=== PATIENT | male | born 1940 | race Asian ===

== ENCOUNTER 2019-04-21 08:32 | Observation (INO) | payer MEDICARE ==
[2019-04-21 09:16] LABS: #Eosinphils 0.7 thou/uL (0.0-0.7); #Lymphocytes 1.4 thou/uL (1.20-3.40); #Monocytes 0.6 thou/uL (0.11-0.59); #Neutrophils 3.4 thou/uL (1.40-6.50); %Basophils 0.8 % (0.0-1.0); %Eosinophils 10.7 % (0.0-10.0); %Monocytes 9.7 % (0.0-10.0); %Neutrophils 55.8 % (42.0-75.0); Hemoglobin 13.7 g/dL (14.0-18.0); Mean Corpuscular HGB CONC 34.6 g/dL (32.0-36.0); Mean Corpuscular Hemoglobin 35.1 pg (27.0-31.0); Mean Platelet Volume 7.3 fL (7.4-10.4); Platelet Count 163 thou/uL (130-400); RBC Distribution Width 12.2 % (11.5-14.5); Red Blood Cell (RBC) Count 3.91 mill/uL (4.70-6.10); White Blood Cell (WBC) Count 6.1 thou/uL (4.8-10.8)
--- NOTE | 2019-04-21 09:20 | RAD ---
LEFT SHOULDER 3 VIEWS: Date: 04/21/2019 HISTORY: Fell against a wall. Complains of left shoulder pain. FINDINGS: There is an AC separation present. There are arthritic changes of the AC joint. The humeral head is h igh-riding. This would suggest that there is presence of a chronic underlying rotator cuff tear. No f ractures. IMPRESSION: AC separation. POS: TPC
--- NOTE | 2019-04-21 09:22 | RAD ---
Exam: Chest one view HISTORY:Syncope Comparison: None FINDINGS: Cardiac silhouette:Upper normal cardiac silhouette. Lines and tubes: Right-sided Mediport catheter terminates in the inferior vena cava. Aorta: Atherosclerosis of the aortic knob Pulmonary vessels: Normal Costophrenic angles: Clear LUNGS: No masses or consolidation. Lung volumes are diminished, likely due to poor inspiratory effort . Pneumothorax: None Osseous abnormalities: None IMPRESSION: 1. Diminished lung volumes, likely due to poor inspiratory effort. 2. Atherosclerosis. 3. No acute cardiopulmonary process.
--- NOTE | 2019-04-21 09:31 | CT ---
Exam: Head CT without contrast HISTORY: Fall. Patient felt dizzy. Pain. COMPARISON: none FINDINGS: Hemorrhage: No intraparenchymal hemorrhage or extra-axial hematoma. Brain parenchyma: Cortical herrera-white matter differentiation is preserved. No mass effect or midline shift. Basilar cisterns are patent.Age-appropriate brain volume loss. Minimal chronic small vessel ischemic changes white matter. Ventricular system: Ventricles and sulci are patent and symmetric. Calvarium: Intact. Sinuses and mastoid air cells: Adequate aeration. IMPRESSION: No intracranial post traumatic sequelae.
[2019-04-21 09:43] LABS: ALT (SGPT) 21 U/L (8-55); AST (SGOT) 24 U/L (5-34); Albumin 4.1 g/dL (3.4-4.8); Alkaline Phosphatase 46 U/L (40-110); Anion Gap 12 mmol/L (10-20); BUN (Urea Nitrogen) 20 mg/dL (8.4-25.7); Bilirubin, Total 0.5 mg/dL (0.2-1.2); CK (CPK) 255 U/L (30-200); Calc. Creatinine Clearance 0 mL/min (70-130); Carbon Dioxide 26 mmol/L (23-31); Chloride 107 mmol/L (98-107); Estimated GFR-MDRD 71; Globulin 2.7 g/dL (2.4-3.5); Glucose 106 mg/dL (83-110); Lipase 27 U/L (8-78); Potassium 4.3 mmol/L (3.5-5.1); Protein, Total 6.8 g/dL (5.8-8.1); Sodium 141 mmol/L (136-145)
[2019-04-21 10:01] LABS: CKMB 4.2 ng/mL (0-6.6)
[2019-04-21] MEDS ORDERED: Iopamidol-370 76% 500 ML 1 ML ONE (10:05)
[2019-04-21] MEDS ORDERED: Aspirin Chewable 81 MG TAB ONE (10:49)
--- NOTE | 2019-04-21 11:55 | CT ---
CT PULMONARY ANGIOGRAM WITH IV CONTRAST AND 3D POSTPROCESSING: Date: 04/21/2019 HISTORY: Dizziness. FINDINGS: There is good contrast opacification of the pulmonary arterial vasculature without filling defects to suggest pulmonary embolism. There are vascular calcifications without evidence of aneurysmal dilatat ion of the thoracic aorta. No pleural or pericardial effusions seen. No pneumothoraces, lobar consoli dation, or lung masses are identified. There are dependent changes in the lung bases. There are mild patchy ground-glass opacities. There are degenerative changes in the spine. A small hiatal hernia is present. IMPRESSION: No CT evidence of pulmonary embolism. POS: OFF
[2019-04-21 13:02] LABS: Troponin I 0.108 ng/mL (< 0.028)
[2019-04-21] MEDS ORDERED: Ondansetron PF 4 MG/2 ML Vial IVP PRN ×2 (13:46→14:08)
[2019-04-21] MEDS ORDERED: Ondansetron ODT 4 MG TAB PO PRN ×2 (13:47→14:08)
[2019-04-21] MEDS ORDERED: Sodium Chloride 0.9% 1,000 ML IV SCH (14:00)
[2019-04-21] MEDS ORDERED: Calcium Carbonate 500 MG ChewTAB PO PRN (14:08)
[2019-04-21] MEDS ORDERED: Diabetic Tussin 200 MG/10 ML UDCUP PO PRN (14:08)
[2019-04-21] MEDS ORDERED: Loperamide HCl 2 MG CAP PO PRN (14:08)
[2019-04-21] MEDS ORDERED: Morphine 2 MG/ML SYRINGE SLOW IVP PRN (14:08)
[2019-04-21] MEDS ORDERED: Bisacodyl 10 MG SUPP PR PRN (14:08)
[2019-04-21] MEDS ORDERED: Sodium Chloride 0.65% Nasal 44 ML BOT EA NARE PRN (14:08)
[2019-04-21] MEDS ORDERED: Loratadine 10 MG TAB PO PRN (14:08)
[2019-04-21] MEDS ORDERED: hydrALAZINE 20 MG/ML VIAL SLOW IVP PRN (14:08)
[2019-04-21] MEDS ORDERED: Cepastat Lozenges 1 LOZ PO PRN (14:08)
[2019-04-21] MEDS ORDERED: Artificial Tears 18 DROP/0.9 ML EA EYE PRN (14:08)
[2019-04-21] MEDS ORDERED: Senokot S 8.6-50 MG TAB PO PRN (14:08)
[2019-04-21] MEDS ORDERED: Acetaminophen 325 MG TAB PO PRN (14:08)
--- NOTE | 2019-04-21 15:21 | ULT ---
BILATERAL CAROTID DUPLEX ULTRASOUND: HISTORY: Syncope. TECHNIQUE: Grayscale, color-flow and spectral Doppler ultrasound imaging of the extracranial carotid artery syst ems was performed bilaterally. FINDINGS: Grayscale, color-flow, Doppler evaluation, spectral analysis of the bilateral carotid arteries is per formed with 2-D imaging. Mild calcified atherosclerotic plaque is seen in the left carotid bulb and proximal internal carotid artery. No significant atherosclerotic plaque is appreciated in the right c arotid artery. There is no hemodynamically significant stenosis in the bilateral internal carotid arteries according to the peak systolic velocities and the ICA/CCA ratios. The peak systolic velocity in the right ICA measures 53.9 cm/s. The peak systolic velocity in the left ICA measures 77.6 cm/s. The right IC A/CCA ratio is 0.8, and the left ICA/CCA ratio is 0.8. Vertebral arteries: Antegrade flow is demonstrated in the vertebral arteries bilaterally. IMPRESSION: No hemodynamically significant stenosis in the bilateral internal carotid arteries.
[2019-04-21] MEDS: Sodium Chloride 0.9% 1,000 ML IV SCH (15:31)
--- NOTE | 2019-04-21 15:31 | HP ---
PRIMARY CARE PHYSICIAN: [facility] Call admission. REASON FOR ADMISSION: Left shoulder pain, fall, syncope/dizziness. HISTORY OF PRESENT ILLNESS: A 78-year-old Nigerien male who speaks Nigerien, and I have obtained history with help of Nigerien patient care representative phone service. The patient has underlying history of lymphoma, which was treated recently, and he has underlying history of hypertension and gastroesophageal reflux disease. Lately, the patient was feeling more dizzy spell. He did not have any complete loss of consciousness, but he was feeling lightheaded intermittently, and yesterday, he fell down on his posterior aspect of head without any head injury. Since then, the patient was having left shoulder pain. The patient denies any exertion related chest discomfort or shortness of breath. He denies any orthopnea, PND, or leg swelling. He denies any fever or chills. He denies any nausea, vomiting, sweating, or diarrhea. The patient reports that he had chemotherapy last week for lymphoma. The patient denies any fever or chills or recent travel or sick exposure. In the emergency room, the patient had a CT brain which did not show any acute intracranial process. The patient had a chest x-ray, which showed no acute cardiopulmonary process. Left shoulder showed an acromioclavicular joint separation, and CT angiography was done for elevated D-dimer, which was negative for pulmonary embolism. REVIEW OF SYSTEMS: CONSTITUTIONAL: Negative for weight loss or gain, ability to conduct usual activities. SKIN: Negative for rash, itching. EYES: Negative for double vision, pain. ENT/MOUTH: Negative for nose bleeding, neck stiffness, pain, tenderness. CARDIOVASCULAR: Negative for palpitations, dyspnea on exertion, orthopnea. RESPIRATORY: Negative for shortness of breath, wheezing, cough, hemoptysis, fever or night sweats. GASTROINTESTINAL: Negative for poor appetite, abdominal pain, heartburn, nausea, vomiting, constipation, or diarrhea. GENITOURINARY: Negative for urgency, frequency, dysuria, nocturia. MUSCULOSKELETAL: Negative for pain, swelling. NEUROLOGIC/PSYCHIATRIC: Negative for anxiety, depression. ALLERGY/IMMUNOLOGIC: Negative for skin rash, bleeding tendency. Please see my HPI for pertinent positives and negatives. All other review of systems reviewed and negative except as mentioned in HPI. PAST MEDICAL HISTORY: Osteoarthritis, benign enlargement of prostate, allergic rhinitis, lymphoma, gastroesophageal reflux disease, esophagitis, chronic insomnia, history of diverticulitis, history of external hemorrhoid, history of inguinal hernia, dyslipidemia, hypertension. PAST SURGICAL HISTORY: Back surgery, cancer removal under left ear. PAST PSYCHIATRIC HISTORY: Reviewed and negative. SOCIAL HISTORY: The patient lives at [facility] in [place], [place]. No history of tobacco, alcohol, or illicit drug abuse. The patient lives alone. FAMILY HISTORY: No strong family history of premature coronary artery disease, stroke, or cancer. ALLERGIES: LACTULOSE AND LISINOPRIL. CURRENT HOME MEDICATIONS: 1. Theragran one tablet daily. 2. Cardura 8 mg p.o. at bedtime. 3. Remeron 15 mg p.o. daily. 4. Zocor 20 mg p.o. at bedtime. 5. Tylenol No. 3 one tablet bedtime. 6. Amlodipine 5 mg p.o. daily. 7. Aspirin 81 mg daily. 8. Lasix 20 mg daily. 9. Glucosamine and chondroitin sulfate one tablet daily. 10. Protonix 40 mg p.o. daily. 11. MiraLAX 17 g p.o. daily. 12. Gabapentin 300 mg p.o. 3 times daily. 13. Potassium chloride 10 mEq p.o. daily. 14. Tylenol 650 mg q.6 hourly p.r.n. EMERGENCY ROOM COURSE: The patient is given aspirin and IV fluid. PHYSICAL EXAMINATION: VITAL SIGNS: On arrival, blood pressure 136/76, pulse 68, respiratory rate 18, temperature 98.6, and saturation 100% on room air. Weight 59 kilogram. GENERAL: The patient is currently alert and awake. No obvious acute distress. HEENT: Head, normocephalic and atraumatic. NECK: Supple. No JVD. No meningeal signs of irritation. LUNGS: Clear to auscultation without any rhonchi or rales. CARDIAC: S1 and S2 appear regular, MediPort on the right side. ABDOMEN: Soft, bowel sounds present, nontender, nondistended. No organomegaly. No mass. EXTREMITIES: Left acromioclavicular joint separation noted. NEUROLOGIC: Nonfocal examination. SKIN: No skin rash. HEMATOLOGICAL: No lymphadenopathy. SIGNIFICANT LABORATORY DATA: EKG showing first-degree AV block, nonspecific ST-T changes. DIAGNOSTIC STUDIES: CT brain based on my review, no acute intracranial process. Chest x-ray based on my review, no acute cardiopulmonary process. CT angiography negative for pulmonary embolism. X-ray shoulder showing left acromioclavicular joint separation. SIGNIFICANT LABORATORY DATA: CBC; WBC 6.1, hemoglobin 13.7, MCV 102, platelets 163. D-dimer 0.48. Sodium 141, potassium 4.3, chloride 107, carbon dioxide 26, BUN 20, creatinine 1.01, glucose 106, calcium 9.0. LFT; AST 24, ALT 21, alkaline phosphatase 46, albumin 4.1, lipase 27. CK 255, CK-MB 4.2, troponin 0.104 and then 0.108. ASSESSMENT AND PLAN: 1. Near-syncope/dizziness. 2. Mechanical fall and subsequently acromioclavicular joint separation. 3. Left shoulder pain due to acromioclavicular joint separation. 4. Elevated troponin, rule out acute coronary syndrome. 5. Macrocytic anemia. 6. History of lymphoma, status post chemotherapy. 7. Elevated D-dimer, negative CT angiography. 8. Hypertension. 9. Benign enlargement of prostate. 10. Allergic rhinitis. PLAN: 1. Carotid Doppler echocardiography. Cardiology consultation. Neurologic consultation. Orthopedic consultation. Pain controlled with pain medication. Echocardiography. phototypesetting equipment monitor. His home medication will be reconciled. 2. Folic acid and vitamin B12 therapy. Orthostatic vitals. 3. Deep venous thrombosis prophylaxis not needed. GI prophylaxis, Pepcid 20 mg p.o. b.i.d. CODE STATUS: The patient is full code. DISPOSITION PLAN: Based on clinical course. Plan of care discussed with the patient in detail with patient care representative phone service. Job ID: [id number]
[2019-04-21] MEDS: HYDROcodone/Acetaminophen 5/325 mg Tablet PO PRN (16:16)
[2019-04-21 19:14] LABS: Troponin I 0.095 ng/mL (< 0.028)
[2019-04-21] MEDS: Famotidine 20 MG TAB PO SCH (20:24)
[2019-04-21] MEDS: Simvastatin 20 MG TAB PO SCH (20:25)
--- NOTE | 2019-04-22 00:08 | CON ---
DATE OF CONSULTATION: 04/21/2019 HISTORY OF PRESENT ILLNESS: This is a 78-year-old patient, who resides in the [facility]. He has been there since some time now. He apparently has been treated for lymphoma. He said also his had cancer. They can no longer take care of themselves at home. He said previous to that he was falling multiple times at home. He now resides in the [facility] and apparently for the last night and the night before, he became dizzy and fell. He denies any eli syncope. Previously when he was falling at home, it was after his chemotherapy. He said he just felt weak, but did not have any dizziness. The dizziness is something new. He has undergone a CT scan, which was unremarkable. He has had orthostatic blood pressure checks, which are also unremarkable. He has had carotid artery evaluation, which is also unremarkable. We are still waiting for an echocardiogram. We will review those results and when available, we will have further recommendations perhaps. At this time overall, he denies any previous cardiac history. He denies any chest pain or significant shortness of breath. PAST MEDICAL HISTORY: Please refer to the notes dictated by my nurse practitioner. SOCIAL HISTORY: Please refer to the notes dictated by my nurse practitioner. REVIEW OF SYSTEMS: Please refer to the notes dictated by my nurse practitioner. MEDICATIONS: Please refer to the notes dictated by my nurse practitioner. ALLERGIES: PLEASE REFER TO THE NOTES DICTATED BY MY NURSE PRACTITIONER. PHYSICAL EXAMINATION: GENERAL: Reveals an elderly gentleman. He speaks no Pashto. This is also the lead recoverer through the telecommunications. He is alert and oriented. VITAL SIGNS: Stable. HEENT: Shows the head to be normocephalic and atraumatic. Carotid pulses are present. I did not hear any bruits. CHEST: Clear to auscultation without rales, rhonchi, or wheezing. He has MediPort in the right upper anterior chest area. CARDIOVASCULAR: He has regular rate and rhythm. I did not hear any gross murmurs. ABDOMEN: Soft and nontender. EXTREMITIES: Show no clubbing, cyanosis, or edema. Pedal pulses are slightly decreased. NEUROLOGIC: He appears to be relatively intact. I did not see any gross focal motor deficits. IMPRESSION: Elderly gentleman with episodes of falls, now with new onset dizziness, but no eli syncope that he is aware of and thus far negative evaluation. We will evaluate the echocardiogram and uncertain as to why he has dizziness, but there is no etiology as of yet documented. CT scan does not appear to be remarkable nor does he have any evidence of carotid artery disease. Overall cardiac status appears to be stable at this time. He denies any chest pain. No EKG changes. I believe the cardiac enzymes were indeterminate, which may be due to his falls and overall general illness. Further recommendations will follow after he has an echocardiogram and this can be evaluated. Should he develop any EKG changes or have any further elevation of the cardiac enzymes, then stress test may be indicated, but would not account for his dizziness. Job ID: [id number]
--- NOTE | 2019-04-22 00:22 | CON ---
DATE OF CONSULTATION: PRIMARY CARE PHYSICIAN: [facility] Call Admission. PRIMARY PLASTIC SHEETS SUPERVISOR: Juana Agrawal MD PRIMARY NEUROLOGIST: Earle Springer MD REASON FOR CARDIOLOGY CONSULTATION: Dizziness and elevated indeterminate troponin. HISTORY OF PRESENT ILLNESS: Mr. Mantilla is a 78-year-old [place] male with history of lymphoma with status post chemotherapy and radiation last week, insomnia, hypertension, referred to us for esophagitis, hemorrhoid, inguinal hernia, and hyperlipidemia. The patient is staying in a long term at this moment. Since the patient's primary language is [place], we communicated through the [place] manager management phone service. The patient has been staying in the long term at this moment. He has been eating well and drinking well according to the patient's manager management. However, last 2 days, he started having dizziness with movement. When the patient in the bed or resting in the chair, he denies any dizziness, or lightheadedness. Today, when he got up, he felt dizziness. The third time when he got up to go to the bathroom, he felt severe dizziness and he fell and hit his left shoulder. The patient's chest x-ray showed the patient has AC separation. The patient was transferred to emergency department for further evaluation and treatment. The patient was found to have indeterminate troponin. Last troponin was 0.1. The patient never had a cardiac workup in the past. He denied any chest pain, heaviness, tightness, or shortness of breath prior to this admission. The patient also denied any cardiac complaints during the initial Cardiology assessment. PAST MEDICAL HISTORY: Osteoarthritis, BPH, lymphoma, GERD, chronic insomnia, history of diverticulitis, external hemorrhoid, history of inguinal hernia, dyslipidemia, hypertension. PAST SURGICAL HISTORY: Back surgery, cancer removal under his left ear. FAMILY HISTORY: No strong family history of premature coronary artery disease, stroke or cancer. SOCIAL HISTORY: The patient lives at [facility] in [place], [place]. No history of tobacco, alcohol, or illicit drug abuse. He lives alone. ALLERGIES: HE IS ALLERGIC TO LACTULOSE AND LISINOPRIL. CURRENT MEDICATIONS: Please review the patient's medical record. REVIEW OF SYSTEMS: A 12-point review of systems negative unless otherwise mentioned in the HPI. PHYSICAL EXAMINATION: VITAL SIGNS: Blood pressure 133/69, temperature 97.9, pulse is 70 and sinus rhythm, respiratory rate 16, O2 saturation 95% on room air. The patient's orthostatic vital sign 167/77, with heart rate 70 in supine position, 160/77 with heart rate 77 in sitting position and 146/79 with heart rate 79 in standing position. GENERAL: The patient is alert and oriented x4. He speak [place] only, but not in acute distress according to [place] manager management. HEENT: Head, normocephalic, atraumatic. Eyes, extraocular muscle movement intact. ENT and Mouth, oral and nasal mucosa moist without lesion. NECK: Supple. Normal range of motion. No JVD. No bruit or thrill. RESPIRATORY: Clear to auscultate bilaterally. No wheezing, rales, or rhonchi noted. CARDIOVASCULAR: Regular rate and rhythm. Normal S1, S2. There is no S3 or S4. No significant murmur, hives, or thrill noted. 2+ pulses in the bilateral upper and lower extremities. No edema in the lower extremities. He has been wearing the compression stocking. ABDOMEN: Soft, nontender. No mass to palpitate. Bowel sounds are present. SKIN: Warm and dry. No lesion, rash, or erythema noted. MUSCULOSKELETAL: The patient able to move all extremities without assist. The patient complained of left shoulder pain. NEUROLOGIC: The patient is alert and oriented x4, nonfocal. PSYCHIATRIC: The patient's mood is very appropriate. LABORATORY DATA: WBC 6.1, hemoglobin 13.7, hematocrit 39.7, platelet 163. D-dimer 0.48. The patient's CT chest is negative. Sodium 141, potassium 4.3, BUN 20, creatinine 1.01. Glucose 106, AST 24, ALT 21, creatine kinase 255, CK-MB 4.2, troponin 0.104, 0.108 and 0.114. IMAGING STUDIES: Carotid Doppler study today showing no significant stenosis in the bilateral intracranial arteries. ASSESSMENT AND PLAN: 1. Dizziness, status post fall secondary to dizziness. The patient's orthostatic vital sign is stable at this moment. Possibly, the patient fell secondary to quick movement, positioning. He has been drinking enough fluid. He is having to wear compression stocking. We would like to continue to monitor. The patient is going to follow up with Neurologist while this admission. The patient's blood work result is stable at this moment. We would like to continue to monitor on the telemetry. The patient's echocardiogram was is in order and results is pending at this moment. 2. Hypertension. His blood pressure is stable at this moment. We would like to continue to monitor and adjust the patient's blood pressure medication. 3. Hyperlipidemia. Simvastatin 20 mg once a day. 4. History of lymphoma, he just finished chemotherapy and radiation therapy, which is managed by primary care doctor. Thank you very much for Cardiology Service to participate in the care of this patient. We will follow along the patient's care team and make further recommendations as appropriate. Job ID: [id number]
[2019-04-22] MEDS: Sodium Chloride 0.9% 1,000 ML IV SCH ×2 (02:41→19:38)
[2019-04-22] MEDS: HYDROcodone/Acetaminophen 5/325 mg Tablet PO PRN ×2 (02:42→09:14)
[2019-04-22 05:20] LABS: #Eosinphils 0.5 thou/uL (0.0-0.7); #Lymphocytes 1.7 thou/uL (1.20-3.40); #Monocytes 0.7 thou/uL (0.11-0.59); #Neutrophils 5.4 thou/uL (1.40-6.50); %Basophils 0.3 % (0.0-1.0); %Eosinophils 5.8 % (0.0-10.0); %Lymphocytes 20.6 % (21.0-51.0); %Monocytes 8.5 % (0.0-10.0); %Neutrophils 64.9 % (42.0-75.0); Hemoglobin 12.4 g/dL (14.0-18.0); Mean Corpuscular HGB CONC 34.5 g/dL (32.0-36.0); Mean Corpuscular Hemoglobin 34.8 pg (27.0-31.0); Mean Platelet Volume 7.4 fL (7.4-10.4); Platelet Count 154 thou/uL (130-400); RBC Distribution Width 12.2 % (11.5-14.5); Red Blood Cell (RBC) Count 3.57 mill/uL (4.70-6.10); White Blood Cell (WBC) Count 8.3 thou/uL (4.8-10.8)
[2019-04-22 05:46] LABS: Carbon Dioxide 20 mmol/L (23-31); Glucose 88 mg/dL (83-110)
[2019-04-22 05:49] LABS: Chloride 111 mmol/L (98-107); Potassium 3.8 mmol/L (3.5-5.1)
[2019-04-22 05:50] LABS: Calcium 8.5 mg/dL (7.8-10.44); Sodium 143 mmol/L (136-145)
[2019-04-22 05:52] LABS: Anion Gap 12 mmol/L (10-20)
[2019-04-22 05:54] LABS: Calc. Creatinine Clearance 64 mL/min (70-130); Estimated GFR-MDRD Greater than 90
[2019-04-22 05:55] LABS: BUN (Urea Nitrogen) 17 mg/dL (8.4-25.7)
[2019-04-22] MEDS: Cyanocobalamin (Vitamin B-12) 1,000 MCG TAB PO SCH (09:08)
[2019-04-22] MEDS: Famotidine 20 MG TAB PO SCH ×2 (09:08→19:39)
[2019-04-22] MEDS: Folic Acid 1 MG TAB PO SCH (09:09)
--- NOTE | 2019-04-22 09:34 | PDOC.CPN ---
- Subjective Date: 04/22/19 Time: 09:36 Interval history: The pt seen and examined. No overnight events. NO cardiac complaints. He cont having pain to Lt shoulder 8/10 on pain scale. - Objective Allergies/Adverse Reactions: Allergies Allergy/AdvReac Type Severity Reaction Status Date / Time lactose Allergy Verified 04/21/19 14:55 lisinopril Allergy Verified 04/21/19 14:55 Visit Medications: Current Medications Acetaminophen (Tylenol) 650 mg PO Q4H PRN PRN Reason: Headache/Fever/Mild Pain (1-3) Hydrocodone Bitart/Acetaminophen ([place] 5/325) 1 tab PO Q4H PRN PRN Reason: Moderate Pain (4-6) Last Admin: 04/22/19 09:14 Dose: 1 tab Artificial Tears (Tears Naturale) 2 drop EA EYE PRN PRN PRN Reason: Dry Eyes Bisacodyl (Dulcolax) 10 mg NM DAILYPRN PRN PRN Reason: Constipation Calcium Carbonate (Tums) 1,000 mg PO Q4H PRN PRN Reason: Heartburn or Indigestion Cyanocobalamin (Vitamin B-12) 1,000 mcg PO DAILY [facility] Last Admin: 04/22/19 09:08 Dose: 1,000 mcg Famotidine (Pepcid) 20 mg PO BID [facility] Last Admin: 04/22/19 09:08 Dose: 20 mg Folic Acid (Folvite) 1 mg PO DAILY [facility] Last Admin: 04/22/19 09:09 Dose: 1 mg Guaifenesin (Robitussin Sf) 200 mg PO Q4H PRN PRN Reason: Cough Hydralazine HCl (Apresoline) 10 mg SLOW IVP Q4H PRN PRN Reason: SBP > 180 and HR < 70 Sodium Chloride (Normal Saline 0.9%) 1,000 mls @ 75 mls/hr IV .[id number] [facility] Last Admin: 04/22/19 02:41 Dose: 1,000 mls Loperamide HCl (Imodium) 2 mg PO PRN PRN PRN Reason: Diarrhea/Loose Stools Loratadine (Claritin) 10 mg PO DAILYPRN PRN PRN Reason: Sinus Symptoms Morphine Sulfate (Morphine) 2 mg SLOW IVP Q4H PRN PRN Reason: Pain Ondansetron HCl (Zofran Odt) 4 mg PO Q6H PRN PRN Reason: Nausea/Vomiting Ondansetron HCl (Zofran) 4 mg IVP Q6H PRN PRN Reason: Nausea/Vomiting Senna/Docusate Sodium (Senokot S) 2 tab PO BIDPRN PRN PRN Reason: Constipation Simvastatin (Zocor) 20 mg PO HS [facility] Last Admin: 04/21/19 20:25 Dose: 20 mg Sodium Chloride (Flush - Normal Saline) 10 ml IVF Q12HR [facility] Last Admin: 04/22/19 09:17 Dose: Not Given Sodium Chloride (Flush - Normal Saline) 10 ml IVF PRN PRN PRN Reason: Saline Flush Sodium Chloride ([place] Nasal [place]inger 0.65%) 0 ml EA NARE QIDPRN PRN PRN Reason: Nasal Congestion Throat Lozenges (Cepastat Lozenges) 1 ralph PO Q2H PRN PRN Reason: Sore Throat Vital Signs & Weight: Vital Signs Temp Pulse Resp BP BP BP BP 04/22/19 07:19 97.9 F 77 18 144/65 H 150/74 H 130/61 04/22/19 02:40 97.8 F 72 18 127/59 L Pulse Ox 04/22/19 07:19 94 L 04/22/19 02:40 93 L Weight 137 lb - Physical Exam General: alert & oriented x3 HEENT: mucus membranes moist Neck: supple neck Cardiac: regular rate and rhythm, S1/S2 Lungs: clear to auscultation Neuro: cranial nerve 2-12 intact - Labs Result Diagrams: 04/22/19 04:53 04/22/19 04:53 Troponin/CKMB CK-MB (CK-2) 4.2 ng/mL (0-6.6) 04/21/19 09:01 Troponin I 0.095 ng/mL (< 0.028) H 04/21/19 18:41 - Telemetry Sinus rhythms and dysrhythmias: sinus rhythm - Assessment/Plan Assessment/Plan: 1. S/p Fall 2/2 dizziness - denied dizziness this AM; waiting for Echo result; neuro consult this AM 2. s/p Lt AC separation 2/2 fall - general surgeon consult today 3. HTN - stable 4. HLD 5. frequent falls MAR reviewed
[2019-04-22 11:39] LABS: Thyroid Stimulating Hormone 1.5258 uIU/mL (0.35-4.94)
--- NOTE | 2019-04-22 14:10 | MRI ---
MRI brain without IV contrast: Multiplanar and multisequential imaging of brain obtained according to protocol. INDICATIONS: Dizziness. Question stroke COMPARISON: none FINDINGS: Mild cortical volume loss. Mild chronic ischemic white matter change. Mild ventriculomegaly which is proportionate to the degree of atrophy. No evidence of restricted diffusion. No evidence of mass or edema. Intracranial internal carotid arteries, proximal cerebral arteries, and basilar arteries show normal flow voids. Dural venous sinuses appear patent. Paranasal sinuses appear clear. Mucosal edema in the left mastoid air cells is noted. Orbits appear unremarkable. Review of osseous structures reveal a low T1 focus in the C2 vertebra which is nonspecific. This coul d be assessed with elective CT cervical spine. IMPRESSION: Cortical atrophy and mild chronic ischemic white matter change. No acute infarct or other acute process identified. Nonspecific low T1 signal in the C2 vertebra.
[2019-04-22] MEDS ORDERED: Amoxicillin/Potassium Clav 875 MG TAB PO SCH (17:30)
--- NOTE | 2019-04-22 18:12 | CON ---
DATE OF TELEMEDICINE CONSULTATION: 04/22/2019 CHIEF COMPLAINT: Possible stroke. HISTORY OF PRESENT ILLNESS: History was obtained with help of our staff member who can speak Malay. The patient reported he had 3 episodes of spinning sensation, lasting 30 seconds each. He was lying down and he felt dizzy. He had 3 incidents, which brought him to the hospital. I also reviewed his history of present illness and H and P where the patient reported similar finding. He did have dizziness, but no loss of consciousness, but he fell down yesterday without head injury. He also has left shoulder pain due to shoulder issues as well. The patient has underlying history of lymphoma and is treated with chemo. He also has hypertension, gastroesophageal reflux disease, and he had a CT, which was negative and left shoulder x-ray showed acromioclavicular joint separation. CTA was completed, which was also negative for any PE. The patient is admitted for full workup. PREVIOUS MEDICAL HISTORY: The patient has lymphoma as noted, hypertension, osteoarthritis, enlargement of prostate, gastroesophageal reflux disease, esophagitis, chronic insomnia, diverticulitis, hemorrhoids, history of inguinal hernia, dyslipidemia. PREVIOUS SURGICAL HISTORY: He had back surgery and cancer removal under the left ear. SOCIAL HISTORY: He lives at [place], [place]. Does not smoke or drink. He lives alone. FAMILY HISTORY: Negative for stroke or similar events. ALLERGIES: HE IS ALLERGIC TO LACTULOSE AND LISINOPRIL. MEDICATIONS: Include; 1. Theragran. 2. Cardura. 3. Remeron. 4. Zocor. 5. Amlodipine. 6. Aspirin. 7. Lasix. 8. Glucosamine. 9. Protonix. 10. MiraLAX. 11. Gabapentin. 12. Potassium chloride. REVIEW OF SYSTEMS: PULMONARY: Negative for shortness of breath. GI: Negative for nausea, vomiting, or diarrhea. NEUROLOGIC: Positive for dizziness. ENT: Negative for hearing problems. OPHTHALMOLOGIC: Negative for any vision loss or visual symptoms. DERMATOLOGIC: Negative for any skin rash. HEMATOLOGIC: Positive for lymphoma. LABORATORY DATA: Current lab workup; white count 8.3, hemoglobin 12.4, hematocrit 36.1, MCV 101, platelet count 154. D-dimer 0.48. Chemistry; sodium 143, potassium 3.8, chloride 111, bicarb 20, BUN 17, creatinine 0.82, glucose 88. Vitamin B12 of 608. Folate greater than 76. TSH within normal limits. His MRI scan was completed after I saw this patient this afternoon and his MRI of the brain showed cortical atrophy, mild chronic vascular ischemic changes. No acute infarct was noted. His carotid Dopplers were reviewed as well and carotid Doppler shows no stenosis. Echocardiogram was also completed. No cardiac issues found on echo. He already saw a television specialist here and the plan is to continue present medications. PHYSICAL EXAMINATION: VITAL SIGNS: Blood pressure 171/77, temperature 99.3, pulse 94, respiratory rate 16, O2 sats 95. CHEST: Clear vesicular breathing. CARDIOVASCULAR: S1, S2 heard. No murmurs. ABDOMEN: Soft and nontender. No organomegaly noted. NEUROLOGIC: Higher intellectual functions. Normal orientation to time, place, person. Cranial nerves 2 through 12; normal extraocular movements. Pupils are 2 mm, reactive to light. Tongue midline. No atrophy noted. Normal sensation of face bilaterally. No facial asymmetry noted. Normal hearing bilaterally. Motor; bulk normal, tone normal. Strength 5/5 throughout. Limited examination of the left shoulder due to pain and discomfort. Muscle groups tested deltoid, biceps, triceps, wrist extension and flexion, finger extension and flexion bilaterally. Sensory, normal touch bilaterally. Cerebellar, normal [id number] and [id number]. IMPRESSION: The patient with dizziness with some spinning sensation. This is more likely to be vertigo. He has not passed out. There is no neurological deficit that we can find. This is likely peripheral vertigo in an elderly patient rather than a central cause. His MRI is negative for acute stroke. He also has hypertension and likely secondary to hypertension, he might have had some vertigo. At this time , I would recommend trying meclizine or scopolamine patch and ENT consultation. Please call us if you have any further questions. Job ID: [id number] [facility]
[2019-04-22] MEDS: Simvastatin 20 MG TAB PO SCH (19:39)
--- NOTE | 2019-04-22 22:08 | PDOC.HOSPP ---
- Subjective Encounter Date: 04/22/19 Encounter Time: 11:00 Subjective: Patient has had falls recently where he would get up , feel the room spinning and would fall. They occurred three times. Patient has numbness on the left side of his face after his most recent chemotherapy. The patient states he has been using a walker for the past 6 months. Since his chemotherapy he has been achy all over. He has left shoulder pain and back pain. He says he has had his ears and eyes checked with PCP a year ago and were fine. - Objective Vital Signs & Weight: Vital Signs (12 hours) Temp Pulse Resp BP BP BP Pulse Ox 04/22/19 19:42 98.6 F 87 20 171/74 H 95 04/22/19 15:40 99.3 F 94 16 171/77 H 95 04/22/19 11:28 98.4 F 76 16 137/64 95 Weight Weight 137 lb I&O: 04/21/19 04/22/19 04/23/19 06:59 06:59 06:59 Intake Total 1207 1833 Output Total 750 550 Balance 457 1283 Result Diagrams: 04/22/19 04:53 04/22/19 04:53 Hospitalist ROS - Review of Systems Constitutional: denies: fever, chills Respiratory: denies: cough, dry, shortness of breath - Medication Medications: Active Medications Generic Name Dose Route Start Last Admin Trade Name Freq PRN Reason Stop Dose Admin Hydrocodone Bitart/Acetaminophen 1 tab 04/21/19 14:08 04/22/19 09:14 [place] 5/325 PO 1 tab Q4H PRN Administration Moderate Pain (4-6) Cyanocobalamin 1,000 mcg 04/22/19 09:00 04/22/19 09:08 Vitamin B-12 PO 1,000 mcg DAILY FABIENNE Administration Famotidine 20 mg 04/21/19 21:00 04/22/19 19:39 Pepcid PO 20 mg BID FABIENNE Administration Folic Acid 1 mg 04/22/19 09:00 04/22/19 09:09 Folvite PO 1 mg DAILY FABIENNE Administration Sodium Chloride 1,000 mls @ 75 mls/hr 04/21/19 14:08 04/22/19 19:38 Normal Saline 0.9% IV 1,000 mls .[id number] FABIENNE Administration Simvastatin 20 mg 04/21/19 21:00 04/22/19 19:39 Zocor PO 20 mg HS FABIENNE Administration Sodium Chloride 10 ml 04/21/19 21:00 04/22/19 19:41 Flush - Normal Saline IVF Not Given Q12HR FABIENNE - Exam General Appearance: NAD, awake alert Eye: PERRL, anicteric sclera ENT: normocephalic atraumatic, no oropharyngeal lesions ENT - other findings: Left ear wax, TM vis bilaterally. Tend mastoid bone on left Neck: supple, symmetric, no JVD Heart: RRR, no murmur, no gallops, no rubs Respiratory: CTAB, no wheezes, no rales, no ronchi Gastrointestinal: soft, non-tender, non-distended Extremities - other findings: left shoulder tenderness pain with abducting. Barney knee pain Neurological: negative: normal sensation to touch (Pt with diminished senesation on left side of face since chemo) Neurological - other findings: 4/5 all four extremities. ROM limited by pain chicho on L shoulder Psychiatric: normal affect, normal behavior, A&O x 3 Hosp A/P - Plan ECHO: EF 55-60%, mild TR, mild MR MRI brain: mild chronic ischemic white matter change. No acute infarct. Mucosal edema left mastoid air cells. Carotid doppler: no significant stenosis CTA: no PE Left shoulder X ray: AC separation with chronic rotator cuff tear Chest X ray: negative CT brain: negative This is a 78 year old male with history of lymphoma who presents with vertigo Vertigo - possibly from acute otitis media on left - CT brain showed no acute disease, MRI brain showed no stroke but mucosal edema left mastoid air cell. ECHO unremarkable, carotid doppler negative, CTA showed no PE - will try augmentin empirically -meclizine prn for vertigo. Consider ENT consult - PT has seen him and recommend SNF Left Rotator cuff tear- chronic - continue PT Macrocytic anemia - vitamin B12 and folate are normal Elevated troponin - peaked at 0.11. No chest pain - ECHO unremarkable - cardiology was consulted Code status: full code
[2019-04-22] MEDS ORDERED: Meclizine HCl 12.5 MG TAB PO PRN (22:16)
--- NOTE | 2019-04-22 23:27 | CON ---
DATE OF CONSULTATION: 04/22/2019 REQUESTING PHYSICIAN: Liam Martinez MD PRINCIPAL COMPLAINT: Left shoulder pain. BRIEF HISTORY OF PRESENT ILLNESS: The patient is a 78-year-old Egyptian gentleman, who today is interviewed using the Mobile interpreting phone service. He reports that he has had a number of episodes of feeling dizzy and then yesterday fell landing hard and injuring his left shoulder, as well as striking his head. There was no evidence of head injury. However, on x-ray of the shoulder, he was found to have AC separation and as such, Orthopedic consultation requested. I will refer you to the history and physical on other conditions for this gentleman regarding his dizziness and cardiac workup. PAST MEDICAL HISTORY: Includes osteoarthritis, BPH, history of lymphoma, reflux disease, history of diverticulitis, history of dizziness, and hypertension. PAST SURGICAL HISTORY: Includes spine surgery, as well as skin cancer removal. MEDICATIONS: Medication reconciliation form. He does have an extensive history of medications includin. Cardura. 2. Remeron. 3. Zocor. 4. Amlodipine. 5. Aspirin. 6. Lasix. 7. Gabapentin. 8. Potassium chloride. SOCIAL HISTORY: He lives in an assisted living facility in [place], [place]. No history of tobacco, alcohol, or drugs. FAMILY HISTORY: Noncontributory for this fall. REVIEW OF SYSTEMS: Denies recent fevers or chills. He denies chest pain or shortness of breath currently. He denies numbness or tingling in this left upper extremity. Of note, the patient is right-hand dominant. PHYSICAL EXAMINATION: GENERAL: He is found to be awake and alert and pleasant. HEENT: Atraumatic and normocephalic. HEART: Shows regular rate and rhythm with a MediPort on the right side. LUNGS: Clear to auscultation bilaterally. PELVIS: Stable to compression. EXTREMITIES: Remarkable for left upper extremity with an atraumatic elbow, wrist and hand. The shoulder is remarkable for an obvious high-riding lateral clavicle consistent with a grade 3 AC separation of the shoulder. He has tenderness to palpation, but no ecchymosis at this time. X-RAYS: Two view of the shoulder shows a grade 3 AC separation with the end of the clavicle almost perched on the acromion. ASSESSMENT: This is a 78-year-old right-hand dominant gentleman, status post ground level fall sustaining a grade 3 AC separation. PLAN: Today, I discussed with the patient that given his age and function, I believe that benign neglect for this shoulder injury is appropriate. I am happy for him to use the arm as he feels comfortable doing. He may use a sling as needed for comfort. At this time, we do not have any plans for surgical intervention. While he is in the hospital and if he is felt to be stable enough, Physical Therapy could begin working with him on progressive range of motion for the shoulder as his symptoms subside. We will be following patient peripherally while he remains in the hospital. I would be happy to see him on an outpatient basis upon discharge. Job ID: [id number]
[2019-04-23] MEDS: HYDROcodone/Acetaminophen 5/325 mg Tablet PO PRN ×3 (02:36→23:00)
[2019-04-23] MEDS: Sodium Chloride 0.9% 1,000 ML IV SCH ×2 (05:48→09:25)
[2019-04-23] MEDS: Amoxicillin/Potassium Clav 875 MG TAB PO SCH ×2 (09:21→19:55)
[2019-04-23] MEDS: Famotidine 20 MG TAB PO SCH ×2 (09:22→19:55)
[2019-04-23] MEDS: Folic Acid 1 MG TAB PO SCH (09:22)
[2019-04-23] MEDS: Cyanocobalamin (Vitamin B-12) 1,000 MCG TAB PO SCH (09:22)
[2019-04-23] MEDS ORDERED: Fluticasone Propionate Nasal Spray 16 gm Bottle NASAL PRN (10:07)
[2019-04-23] MEDS ORDERED: Non-Formulary Item 1 EACH (Ondansetron Hcl [Zofran] 8 MG) PO PRN (10:07)
[2019-04-23] MEDS ORDERED: Atenolol 50 MG TAB PO SCH ×2 (10:08→11:00)
--- NOTE | 2019-04-23 10:11 | PDOC.HOSPP ---
- Subjective Encounter Date: 04/23/19 Encounter Time: 09:00 Subjective: The patient was seen with [place] terrazzo polisher helper. The patient continues to have vertigo. He notices it while laying down in bed. He feels the room spinning around. He denies hearing loss. No external ear pain. The patient says he did not ambulate to the bathroom on his own and used a wheelchair instead because he felt he was going to fall. BP also elevated to 180 this morning - Objective Vital Signs & Weight: Vital Signs (12 hours) Temp Pulse Resp BP BP Pulse Ox 04/23/19 07:54 98.2 F 77 20 182/76 H 97 04/23/19 03:25 98.4 F 79 20 168/76 H 97 04/22/19 23:59 98.5 F 90 18 176/79 H 94 L Weight Weight 137 lb I&O: 04/22/19 04/23/19 04/24/19 06:59 06:59 06:59 Intake Total 1207 2933 Output Total 750 1150 Balance 457 1783 Result Diagrams: 04/22/19 04:53 04/22/19 04:53 Hospitalist ROS - Review of Systems Constitutional: denies: fever, chills Respiratory: denies: cough, dry, shortness of breath - Medication Medications: Active Medications Generic Name Dose Route Start Last Admin Trade Name Freq PRN Reason Stop Dose Admin Hydrocodone Bitart/Acetaminophen 1 tab 04/21/19 14:08 04/23/19 09:23 [place] 5/325 PO 1 tab Q4H PRN Administration Moderate Pain (4-6) Amoxicillin/Clavulanate Potassium 875 mg 04/23/19 09:00 04/23/19 09:21 Augmentin PO 875 mg Q12HR FABIENNE Administration Cyanocobalamin 1,000 mcg 04/22/19 09:00 04/23/19 09:22 Vitamin B-12 PO 1,000 mcg DAILY FABIENNE Administration Famotidine 20 mg 04/21/19 21:00 04/23/19 09:22 Pepcid PO 20 mg BID FABIENNE Administration Folic Acid 1 mg 04/22/19 09:00 04/23/19 09:22 Folvite PO 1 mg DAILY FABIENNE Administration Sodium Chloride 1,000 mls @ 75 mls/hr 04/21/19 14:08 04/23/19 09:25 Normal Saline 0.9% IV 1,000 mls .[id number] FABIENNE Administration Meclizine HCl 12.5 mg 04/22/19 22:16 04/23/19 02:37 Antivert PO 12.5 mg BIDPRN PRN Administration Dizziness Simvastatin 20 mg 04/21/19 21:00 04/22/19 19:39 Zocor PO 20 mg HS FABIENNE Administration Sodium Chloride 10 ml 04/21/19 21:00 04/23/19 09:22 Flush - Normal Saline IVF Not Given Q12HR FABIENNE - Exam General Appearance: NAD, awake alert Eye: PERRL, anicteric sclera ENT: normocephalic atraumatic, no oropharyngeal lesions Neck: no JVD Heart: RRR, no murmur, no gallops, no rubs Respiratory: CTAB, no wheezes, no rales, no ronchi Gastrointestinal: soft, non-tender, non-distended, normal bowel sounds Extremities: no cyanosis, no clubbing, no edema Skin: normal turgor, no lesions, no rashes Neurological: cranial nerve grossly intact, normal sensation to touch, no focal deficits, no new deficit Neurological - other findings: numbness to left face. Musculoskeletal - other findings: Left shoulder tenderness. Bilateral knee tenderness no swelling Psychiatric: normal affect, normal behavior, A&O x 3, oriented to person Hosp A/P - Plan ECHO: EF 55-60%, mild TR, mild MR MRI brain: mild chronic ischemic white matter change. No acute infarct. Mucosal edema left mastoid air cells. Carotid doppler: no significant stenosis CTA: no PE Left shoulder X ray: AC separation with chronic rotator cuff tear Chest X ray: negative CT brain: negative This is a 78 year old male with history of lymphoma who presents with vertigo Vertigo - possibly from acute otitis media on left - CT brain showed no acute disease, MRI brain showed no stroke but mucosal edema left mastoid air cell. ECHO unremarkable, carotid doppler negative, CTA showed no PE. Orthostatics negative - continue augmentin empirically. Continue meclizine, change to standing - ENT consult - PT has seen him and recommend SNF Hypertensive Urgency - will resume amlodipine, atenolol and doxazosin Left Rotator cuff tear- chronic - continue PT Macrocytic anemia - vitamin B12 and folate are normal Elevated troponin - peaked at 0.11. No chest pain - ECHO unremarkable - cardiology was consulted - continue aspirin and statin Code status: full code
[2019-04-23] MEDS ORDERED: Aspirin Chewable 81 MG TAB PO SCH ×2 (10:12→11:00)
[2019-04-23] MEDS ORDERED: Ondansetron ODT 8 MG TAB PO PRN (10:59)
[2019-04-23] MEDS: Amlodipine 5 MG TAB PO SCH (11:23)
--- NOTE | 2019-04-23 11:43 | PDOC.CPN ---
- Subjective Date: 04/23/19 Time: 11:47 Interval history: The pt seen and examined. No overnight events. No cardiac complaints. - Objective Allergies/Adverse Reactions: Allergies Allergy/AdvReac Type Severity Reaction Status Date / Time lactose Allergy Verified 04/21/19 14:55 lisinopril Allergy Verified 04/21/19 14:55 Visit Medications: Current Medications Acetaminophen (Tylenol) 650 mg PO Q4H PRN PRN Reason: Headache/Fever/Mild Pain (1-3) Hydrocodone Bitart/Acetaminophen ([place] 5/325) 1 tab PO Q4H PRN PRN Reason: Moderate Pain (4-6) Last Admin: 04/23/19 09:23 Dose: 1 tab Amlodipine Besylate (Norvasc) 5 mg PO DAILY [facility] Last Admin: 04/23/19 11:23 Dose: 5 mg Amoxicillin/Clavulanate Potassium (Augmentin) 875 mg PO Q12HR [facility] Last Admin: 04/23/19 09:21 Dose: 875 mg Artificial Tears (Tears Naturale) 2 drop EA EYE PRN PRN PRN Reason: Dry Eyes Aspirin (Aspirin Chewable) 81 mg PO DAILY [facility] Aspirin (Aspirin Chewable) 81 mg PO NOW [facility] Stop: 04/23/19 14:00 Last Admin: 04/23/19 11:23 Dose: 81 mg Atenolol (Tenormin) 50 mg PO DAILY [facility] Atenolol (Tenormin) 50 mg PO NOW [facility] Stop: 04/23/19 14:00 Last Admin: 04/23/19 11:23 Dose: 50 mg Atorvastatin Calcium (Lipitor) 10 mg PO HS [facility] Bisacodyl (Dulcolax) 10 mg ME DAILYPRN PRN PRN Reason: Constipation Calcium Carbonate (Tums) 1,000 mg PO Q4H PRN PRN Reason: Heartburn or Indigestion Cyanocobalamin (Vitamin B-12) 1,000 mcg PO DAILY [facility] Last Admin: 04/23/19 09:22 Dose: 1,000 mcg Doxazosin Mesylate (Cardura) 8 mg PO HS [facility] Famotidine (Pepcid) 20 mg PO BID [facility] Last Admin: 04/23/19 09:22 Dose: 20 mg Fluticasone Propionate (Flonase Nasal [place]) 0 gm NASAL DAILY PRN PRN Reason: Allergies Guaifenesin (Robitussin Sf) 200 mg PO Q4H PRN PRN Reason: Cough Hydralazine HCl (Apresoline) 10 mg SLOW IVP Q4H PRN PRN Reason: SBP > 180 and HR < 70 Loperamide HCl (Imodium) 2 mg PO PRN PRN PRN Reason: Diarrhea/Loose Stools Loratadine (Claritin) 10 mg PO DAILYPRN PRN PRN Reason: Sinus Symptoms Meclizine HCl (Antivert) 12.5 mg PO BIDPRN PRN PRN Reason: Dizziness Last Admin: 04/23/19 02:37 Dose: 12.5 mg Mirtazapine (Remeron) 15 mg PO HS [facility] Morphine Sulfate (Morphine) 2 mg SLOW IVP Q4H PRN PRN Reason: Pain Multivitamins (Theragran) 1 tab PO DAILY [facility] Ondansetron HCl (Zofran Odt) 4 mg PO Q6H PRN PRN Reason: Nausea/Vomiting Ondansetron HCl (Zofran) 4 mg IVP Q6H PRN PRN Reason: Nausea/Vomiting Ondansetron HCl (Zofran Odt) 8 mg PO TIDPRN PRN PRN Reason: Nausea/Vomiting Pantoprazole Sodium (Protonix) 40 mg PO DAILY [facility] Senna/Docusate Sodium (Senokot S) 2 tab PO BIDPRN PRN PRN Reason: Constipation Simvastatin (Zocor) 20 mg PO HS [facility] Last Admin: 04/22/19 19:39 Dose: 20 mg Sodium Chloride (Flush - Normal Saline) 10 ml IVF Q12HR [facility] Last Admin: 04/23/19 09:22 Dose: Not Given Sodium Chloride (Flush - Normal Saline) 10 ml IVF PRN PRN PRN Reason: Saline Flush Sodium Chloride ([place] Nasal [place] 0.65%) 0 ml EA NARE QIDPRN PRN PRN Reason: Nasal Congestion Throat Lozenges (Cepastat Lozenges) 1 ralph PO Q2H PRN PRN Reason: Sore Throat Vital Signs & Weight: Vital Signs Temp Pulse Resp BP BP Pulse Ox 04/23/19 07:54 98.2 F 77 20 182/76 H 97 04/23/19 03:25 98.4 F 79 20 168/76 H 97 04/22/19 23:59 98.5 F 90 18 176/79 H 94 L Weight 137 lb - Physical Exam General: alert & oriented x3 HEENT: mucus membranes moist Neck: supple neck Cardiac: regular rate and rhythm, S1/S2 Lungs: clear to auscultation Neuro: cranial nerve 2-12 intact - Labs Result Diagrams: 04/22/19 04:53 04/22/19 04:53 Troponin/CKMB CK-MB (CK-2) 4.2 ng/mL (0-6.6) 04/21/19 09:01 Troponin I 0.095 ng/mL (< 0.028) H 04/21/19 18:41 - Telemetry Sinus rhythms and dysrhythmias: sinus rhythm - Assessment/Plan Assessment/Plan: 1. S/p Fall 2/2 dizziness - denied dizziness this AM; Echo within normal range; neuro consult this AM; continue augmentin empirically. Continue meclizine, change to standing 2. S/p Lt AC separation 2/2 fall - general surgeon consult today 3. HTN - Norvasc, Atenolol, and Cardura. 4. HLD - on statin 5. frequent falls MAR reviewed * Echo on 04/22/2019 with EF 55-60%, mild MR, TR, and ME I agree with the A/P by the medical lab technician. I will sign off. the cardiac status is stable. jason
--- NOTE | 2019-04-23 16:59 | CON ---
DATE OF CONSULTATION: CHIEF COMPLAINT: Dizziness. HISTORY OF PRESENT ILLNESS: A 78-year-old male patient with a history of left shoulder pain and dizziness that has been going on for roughly one week following a lumbar puncture, the patient has complained that he has gotten up during the night 2 to 3 times or during the daytime and has noticed that he has a sensation of either room spinning or dizziness and has had one fall. The patient denies any lower extremity weakness or numbness, but has stated that the 2 to 3 episodes he has had last roughly seconds in duration and after some time of resting, he does improve. He is not having any head pain or ear pain. He denies any ear drainage or otalgia. He is not having any shortness of breath, fever, nausea, vomiting, chills, or diarrhea. The patient has had recent chemotherapy and recent lumbar puncture. In the emergency room, he has had a workup with a CT brain and also a followup MRI that did not show any acute stroke. He did have some small amount of fluid showing in the mastoid cavity on the left side. PAST MEDICAL HISTORY: Please see HPI. PAST SURGICAL HISTORY: No head and neck surgeries. CURRENT MEDICATIONS: Please see electronic medical record. ALLERGIES: NO KNOWN DRUG ALLERGIES. SOCIAL HISTORY: Noncontributory. FAMILY HISTORY: Noncontributory. REVIEW OF SYSTEMS: SKIN: Negative. EYES: Negative. EARS, NOSE, AND THROAT: Please see HPI, otherwise negative. RESPIRATORY: Negative. CARDIOVASCULAR: Negative. GASTROINTESTINAL: Negative. MUSCULOSKELETAL: Negative. NEUROLOGIC: Negative. HEMATOLOGIC: Please see HPI, otherwise negative. LYMPHATIC: Please see HPI, otherwise negative. IMMUNOLOGIC: Please see HPI, otherwise negative. ENDOCRINE: Negative. PHYSICAL EXAMINATION: GENERAL: No acute distress. Alert and oriented x3. Exam and HPI were completed with a [place] navy seal over the telephone. HEAD AND FACE: Normocephalic and atraumatic. No skin or facial lesions. No maxillary or frontal tenderness. No parotid gland masses or tenderness. No submandibular gland masses or tenderness. EYES: Equally round. Pupils are reactive to light. He does have arcus senilis on both eyes and there is no nystagmus on lateral gaze. EARS: Right and left pinna are normal. EACs are clear. TMs are intact with normal landmarks. No evidence of effusion or infection. There is a small amount of dry powdery wax in the EAC, especially , but there is no cerumen impaction. NOSE: External nose is normal. Nasal mucosa is healthy. Turbinates are healthy. No masses or lesions. ORAL CAVITY: Mucous membranes are moist. The tongue is soft without masses. Floor of mouth is soft. Palate and uvula without lesions with symmetric elevation. NECK: No lymphadenopathy. Trachea is midline. No masses or lesions. NEUROLOGIC: Cranial nerves are 2 through 12 are grossly intact. PSYCHIATRIC: Mood and affect are normal. ASSESSMENT AND PLAN: A 78-year-old male patient with recent lumbar puncture and history of chemotherapy for lymphoma, presenting with 2 to 3 episodes of dizziness and room spinning sensation that last for seconds in duration and then improved. Given that these episodes have started after recent lumbar puncture, that may be a contributing factor. However, the patient does complain of room spinning sensation that improved in seconds in duration, which tends to point towards BPPV or benign paroxysmal positional vertigo. The patient does not complain of any room spinning sensation when lying down, but only when getting up, so we will also entertain orthostatic hypotension. We explained clearly with the patient with the help of a [place] navy seal that the patient would need to be getting up carefully with help in the hospital as well as at home and that he would need to hold onto something or use an assistance either with a cane or walker in order to help him avoid any future falls. The patient was also given my business card in order to make a followup appointment after discharge from the hospital. Given Jake-Hallpike given the patient's shoulder pain; however, no nystagmus was seen on the [place] and so, no canalith repositioning maneuvers were undertaken. Job ID: [id number]
[2019-04-23] MEDS: Simvastatin 20 MG TAB PO SCH (19:55)
[2019-04-23] MEDS: Atorvastatin Calcium 10 MG TAB PO SCH (19:55)
[2019-04-23] MEDS: Doxazosin Mesylate 4 MG TAB PO SCH (19:55)
[2019-04-23] MEDS: Mirtazapine 15 MG TAB PO SCH (19:56)
[2019-04-23] MEDS: Meclizine HCl 12.5 MG TAB PO SCH (19:56)
[2019-04-23] MEDS ORDERED: Simvastatin 20 MG TAB PO SCH (21:00)
[2019-04-23] MEDS ORDERED: DOXAZOSIN MESYLATE 8 MG PO SCH (21:00)
[2019-04-24] MEDS ORDERED: Aspirin Chewable 81 MG TAB PO SCH (09:00)
[2019-04-24] MEDS: Famotidine 20 MG TAB PO SCH ×2 (09:23→21:39)
[2019-04-24] MEDS: Atenolol 50 MG TAB PO SCH (09:24)
[2019-04-24] MEDS: Amlodipine 5 MG TAB PO SCH (09:24)
[2019-04-24] MEDS: Cyanocobalamin (Vitamin B-12) 1,000 MCG TAB PO SCH (09:24)
[2019-04-24] MEDS: Multivit, Therapeutic 1 TAB PO SCH (09:25)
[2019-04-24] MEDS: Aspirin Chewable 81 MG TAB PO SCH (09:25)
[2019-04-24] MEDS: Amoxicillin/Potassium Clav 875 MG TAB PO SCH (09:25)
[2019-04-24] MEDS: Meclizine HCl 12.5 MG TAB PO SCH ×2 (09:25→21:40)
[2019-04-24] MEDS: HYDROcodone/Acetaminophen 5/325 mg Tablet PO PRN (10:36)
--- NOTE | 2019-04-24 17:55 | PDOC.HOSPP ---
- Subjective Encounter Date: 04/24/19 Encounter Time: 17:54 Subjective: The patient is doing bettter. No complaints no dizziness today. He ambulated with PT without asisstance Assisted living unable to take back because of med rec - Objective Vital Signs & Weight: Vital Signs (12 hours) Temp Pulse Pulse Pulse Pulse Pulse Resp 04/24/19 15:40 98.5 F 63 16 04/24/19 15:10 63 61 04/24/19 12:30 97.5 F L 63 16 04/24/19 10:10 68 63 04/24/19 07:55 97.3 F L 71 16 BP BP BP BP BP BP BP 04/24/19 15:40 139/65 04/24/19 15:10 139/65 148/66 H 04/24/19 12:30 146/66 H 04/24/19 10:10 140/64 147/65 H 04/24/19 07:55 152/68 H 145/67 H 136/61 Pulse Ox 04/24/19 15:40 96 04/24/19 15:10 04/24/19 12:30 97 04/24/19 10:10 04/24/19 07:55 95 Weight Weight 137 lb I&O: 04/23/19 04/24/19 04/25/19 06:59 06:59 06:59 Intake Total 2933 1974 Output Total 1150 1550 Balance 1783 424 Result Diagrams: 04/22/19 04:53 04/22/19 04:53 Hospitalist ROS - Review of Systems Constitutional: denies: fever, chills - Medication Medications: Active Medications Generic Name Dose Route Start Last Admin Trade Name Freq PRN Reason Stop Dose Admin Hydrocodone Bitart/Acetaminophen 1 tab 04/21/19 14:08 04/24/19 10:36 [place] 5/325 PO 1 tab Q4H PRN Administration Moderate Pain (4-6) Amlodipine Besylate 5 mg 04/23/19 09:00 04/24/19 09:24 Norvasc PO 5 mg DAILY FABIENNE Administration Aspirin 81 mg 04/24/19 09:00 04/24/19 09:25 Aspirin Chewable PO 81 mg DAILY FABIENNE Administration Atenolol 50 mg 04/24/19 09:00 04/24/19 09:24 Tenormin PO 50 mg DAILY FABIENNE Administration Atorvastatin Calcium 10 mg 04/23/19 21:00 04/23/19 19:55 Lipitor PO 10 mg HS FABIENNE Administration Cyanocobalamin 1,000 mcg 04/22/19 09:00 04/24/19 09:24 Vitamin B-12 PO 1,000 mcg DAILY FABIENNE Administration Doxazosin Mesylate 8 mg 04/23/19 21:00 04/23/19 19:55 Cardura PO 8 mg HS FABIENNE Administration Famotidine 20 mg 04/21/19 21:00 04/24/19 09:23 Pepcid PO 20 mg BID FABIENNE Administration Meclizine HCl 12.5 mg 04/23/19 21:00 04/24/19 09:25 Antivert PO 12.5 mg BID FABIENNE Administration Mirtazapine 15 mg 04/23/19 21:00 04/23/19 19:56 Remeron PO 15 mg HS FABIENNE Administration Multivitamins 1 tab 04/24/19 09:00 04/24/19 09:25 Theragran PO 1 tab DAILY FABIENNE Administration Pantoprazole Sodium 40 mg 04/24/19 09:00 04/24/19 09:25 Protonix PO 40 mg DAILY FABIENNE Administration Simvastatin 20 mg 04/21/19 21:00 04/23/19 19:55 Zocor PO 20 mg HS FABIENNE Administration Sodium Chloride 10 ml 04/21/19 21:00 04/24/19 09:00 Flush - Normal Saline IVF Not Given Q12HR FABIENNE - Exam General Appearance: NAD, awake alert Eye: PERRL, anicteric sclera ENT: normocephalic atraumatic, no oropharyngeal lesions ENT - other findings: no tenderness on mastoid area Neck: no JVD Heart: RRR, no murmur, no gallops, no rubs Respiratory: CTAB, no wheezes, no rales, no ronchi Gastrointestinal: soft, non-tender, non-distended, normal bowel sounds Extremities: no cyanosis, no clubbing, no edema Neurological: cranial nerve grossly intact, normal sensation to touch, no focal deficits, no new deficit Hosp A/P - Plan ECHO: EF 55-60%, mild TR, mild MR MRI brain: mild chronic ischemic white matter change. No acute infarct. Mucosal edema left mastoid air cells. Carotid doppler: no significant stenosis CTA: no PE Left shoulder X ray: AC separation with chronic rotator cuff tear Chest X ray: negative CT brain: negative This is a 78 year old male with history of lymphoma who presents with vertigo Vertigo - possibly from BPPV vs post LP - CT brain showed no acute disease, MRI brain showed no stroke but mucosal edema left mastoid air cell. ECHO unremarkable, carotid doppler negative, CTA showed no PE. Orthostatics negative - will dc augmentin - meclizine standing - ENT consulted, stated could be BPPV, unable to do [place] Halpike maneuver - pt stable for d/c home Hypertensive Urgency - continue amlodipine, atenolol and doxazosin Left Rotator cuff tear- chronic - continue PT Macrocytic anemia - vitamin B12 and folate are normal Elevated troponin - peaked at 0.11. No chest pain - ECHO unremarkable - cardiology was consulted - continue aspirin and statin Code status: full code
[2019-04-24] MEDS: Doxazosin Mesylate 4 MG TAB PO SCH (21:39)
[2019-04-24] MEDS: Mirtazapine 15 MG TAB PO SCH (21:39)
[2019-04-24] MEDS: Atorvastatin Calcium 10 MG TAB PO SCH (21:39)
[2019-04-24] MEDS: Simvastatin 20 MG TAB PO SCH (21:40)
[2019-04-25 05:09] LABS: Hemoglobin 12.2 g/dL (14.0-18.0); Mean Corpuscular HGB CONC 34.7 g/dL (32.0-36.0); Mean Corpuscular Hemoglobin 34.5 pg (27.0-31.0); Mean Corpuscular Volume 99.3 fL (78.0-98.0); Mean Platelet Volume 6.9 fL (7.4-10.4); Platelet Count 156 thou/uL (130-400); RBC Distribution Width 11.9 % (11.5-14.5); Red Blood Cell (RBC) Count 3.53 mill/uL (4.70-6.10); White Blood Cell (WBC) Count 5.9 thou/uL (4.8-10.8)
[2019-04-25 05:47] LABS: Anion Gap 13 mmol/L (10-20); BUN (Urea Nitrogen) 15 mg/dL (8.4-25.7); Calc. Creatinine Clearance 66 mL/min (70-130); Calcium 8.7 mg/dL (7.8-10.44); Carbon Dioxide 23 mmol/L (23-31); Chloride 109 mmol/L (98-107); Estimated GFR-MDRD Greater than 90; Glucose 84 mg/dL (83-110); Potassium 3.4 mmol/L (3.5-5.1); Sodium 142 mmol/L (136-145)
[2019-04-25 07:54] VITALS: BP 137/62; TEMP 97.7
[2019-04-25] MEDS: Aspirin Chewable 81 MG TAB PO SCH (08:44)
[2019-04-25] MEDS: Atenolol 50 MG TAB PO SCH (08:45)
[2019-04-25] MEDS: Amlodipine 5 MG TAB PO SCH (08:45)
[2019-04-25] MEDS: Famotidine 20 MG TAB PO SCH (08:45)
[2019-04-25] MEDS: Cyanocobalamin (Vitamin B-12) 1,000 MCG TAB PO SCH (08:46)
[2019-04-25] MEDS: Meclizine HCl 12.5 MG TAB PO SCH (08:46)
[2019-04-25] MEDS: Multivit, Therapeutic 1 TAB PO SCH (08:46)
--- NOTE | 2019-04-25 10:13 | DIS ---
DATE OF ADMISSION: 04/21/2019 DATE OF DISCHARGE: 04/24/2019 DISCHARGE DIAGNOSES: Vertigo, possibly secondary to benign positional vertigo versus secondary to intrathecal chemotherapy; left rotator cuff tear; hypertensive urgency; macrocytic anemia; elevated troponin. CONSULTATIONS: Cardiology with Dr. Juana Agrawal; Neurology with Dr. Jerri Arce. PROCEDURES: None. 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 The patient reported that he had had a lumbar puncture with intrathecal chemotherapy last . Around the time of his procedure, the patient started having dizziness while standing and did not feel comfortable walking due to fear of falling. The patient did not lose consciousness. The patient was admitted for further workup. HOSPITAL COURSE: Vertigo: The patient had a CT scan of the brain, which showed no acute disease. MRI of his brain showed no evidence of a stroke with some mucosal edema in the left mastoid air cell. Neurology was consulted and thought it was not a neurological problem. CTA showed no evidence of PE. Carotid Doppler showed no significant stenosis. The patient did have a mildly elevated troponin and underwent an echocardiogram which was unremarkable. His orthostatics were also negative. Due to the finding of his mucosal edema in the left mastoid air cell , the patient was initially started on Augmentin for possible otitis media. ENT was consulted, did not think that he had any evidence of otitis media, so antibiotics were discontinued on discharge. He was started on meclizine for possible benign positional vertigo. On the day of discharge, the patient reported no dizziness and was able to walk in the hallway with a walker without any assistance. The patient should consider outpatient followup with ENT for evaluation of BPPV. On exam, the [place]-Hallpike maneuver was not able to be done due to the patient's musculoskeletal pain. However, he will be discharged with meclizine as an outpatient prn. Hypertensive emergency: The patient did have a blood pressure in the 180s on admission. His blood pressure medications were initially held due to workup of stroke. These were resumed with adequate control of his blood pressure. Left rotator cuff tear: The patient reported some shoulder pain in the left side and had difficulty abducting without pain. He had a shoulder x-ray done, which showed a chronic AC separation with chronic rotator cuff tear. Orthopedics was consulted and recommended a sling. He can follow up with Dr. Marinelli as an outpatient if needed. Macrocytic anemia: The patient had a hemoglobin of 12.4 with an MCV 101. Vitamin B12 and folate and TSH levels were checked, which were normal. This most likely secondary to lymphoma. He will follow up with his oncologist. Elevated troponin: The patient's troponin peaked at 0.11. The patient denied any chest pain. His echo showed an EF of 55% to 60% without any wall motion abnormalities. Cardiology was consulted and did not have any further recommendations. He will resume on his aspirin and statin on discharge. DISCHARGE PHYSICAL EXAMINATION: VITAL SIGNS: Temperature 97.5, heart rate 63, respiratory rate 16, O2 saturation 97% on room air. GENERAL: The patient is alert, awake, oriented x3. HEENT: The patient has decreased sensation on the left side of his face secondary to his chemotherapy. He has no tenderness on tragus pull or on the mastoid bone on discharge. CVS: Regular rate and rhythm with no murmurs, rubs, or gallops. LUNGS: Clear to auscultation bilaterally. ABDOMEN: Positive bowel sounds, soft, nontender, nondistended. NEUROLOGIC: The patient's cranial nerves 2 through 12 are intact. He has intact sensation in all 4 extremities. His strength is slightly diminished in the left upper extremity due to rotator cuff tear. 4/5 strength in the remaining extremities. EXTREMITIES: No edema. LABORATORY DATA: CBC on : Hemoglobin 12.4, hematocrit 36.8, platelet count of 154. BMP on : Chloride elevated at 111, CO2 20. Troponin I: 0.108, 0.110, 0.095. Vitamin B12: 608. Folate: Greater than 76. TSH: 1.5. D-dimer: 0.48. IMAGING STUDIES: CT brain on 04/21: Shows no acute disease. Chest x-ray on 04/21: No acute process. Shoulder x-ray on 04/21: Shows arthritic changes of the AC joint. Chronic underlying rotator cuff tear. CTA thorax: Shows no evidence of PE. Carotid Doppler 04/21: Shows no significant stenosis. MRI brain on : No acute infarct. Echo on : EF 55% to 60%, mild MR, mild TR, mild KS. DISCHARGE CONDITION: Stable. ACTIVITY: As tolerated. DIET: Heart healthy diet. DISCHARGE MEDICATIONS: 1. Meclizine 12.5 mg p.o. b.i.d. p.r.n. for vertigo. 2. Discontinued medications: Lasix 20 mg daily and potassium. DISCHARGE INSTRUCTIONS: The patient should follow up with his PCP in a week. He should consider following up with ENT as an outpatient for evaluation of benign positional vertigo. The patient had no evidence of a stroke. Job ID: [id number] [facility]
--- NOTE | 2019-04-29 15:44 | EKG ---
Test Reason : Blood Pressure : / mmHG Vent. Rate : 063 BPM Atrial Rate : 063 BPM P-R Int : 220 ms QRS Dur : 080 ms QT Int : 414 ms P-R-T Axes : 049 -15 039 degrees QTc Int : 423 ms Sinus rhythm with 1st degree A-V block Otherwise normal ECG Confirmed by DENZEL WALLACE, DWIGHT ([id number]), city editor MARIA C SHANKS ([id number]) on 04/29/2019 3:43:52 PM Referred By: Confirmed By:DWIGHT MAHONEY MD
== END 2019-04-25 11:45 ==
LOC: ERS 08:32 → 2SW 10:59
PROVIDERS: ADMIT Internal Medicine; ATTEND Internal Medicine
DX: R42 Dizziness and giddiness (principal); M75.102 Unspecified rotator cuff tear or rupture of left shoulder, not specified as traumatic; S43.102A Unspecified dislocation of left acromioclavicular joint, initial encounter; I16.0 Hypertensive urgency; I10 Essential (primary) hypertension; D53.9 Nutritional anemia, unspecified; R79.89 Other specified abnormal findings of blood chemistry; K21.9 Gastro-esophageal reflux disease without esophagitis; M19.90 Unspecified osteoarthritis, unspecified site; N40.0 Benign prostatic hyperplasia without lower urinary tract symptoms; F51.04 Psychophysiologic insomnia; E78.5 Hyperlipidemia, unspecified; R79.1 Abnormal coagulation profile; J30.9 Allergic rhinitis, unspecified; I70.0 Atherosclerosis of aorta; Z85.72 Personal history of non-Hodgkin lymphomas; Z79.82 Long term (current) use of aspirin; Z79.899 Other long term (current) drug therapy; Z88.8 Allergy status to other drugs, medicaments and biological substances; W19.XXXA Unspecified fall, initial encounter
CPT/HCPCS: 70450; 70551; 71045; 71275; 73030; 80048 ×2; 80053; 82550; 82553; 82607; 82746; 83690; 84443; 84484 ×2; 85025 ×2; 85027; 85379; 93005; 93306; 93880; 96360; 96361 ×4; 97116 ×3; 97139 ×3; 97530 ×2; 97535; 99285; G0378 ×6; 36415; J8597; Q9967